=== PATIENT | male | born 1970 | race Caucasian/White ===

== ENCOUNTER 2019-10-11 19:41 | Emergency (ER) | payer MEDICARE, MEDICAID ==
[2019-10-11 19:51] VITALS: BP 160/100
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
== END 2019-10-11 20:10 | disposition home or self-care (01) ==
LOC: ED 19:41
DX: F22 Delusional disorders (principal); H92.01 Otalgia, right ear; Z53.20 Procedure and treatment not carried out because of patient's decision for unspecified reasons
CPT/HCPCS: 80053; 80307; 80320; 80329; 83690; 84443; 85025; 99283; 99284

== ENCOUNTER 2019-11-18 23:06 | Outpatient (CLI) | payer MEDICARE, MEDICAID | END 2019-11-18 23:59 | disposition critical access hospital (66) | LOC: EMS 23:06 | PROVIDERS: ATTEND Surgery | DX: H92.01 Otalgia, right ear (principal); R41.82 Altered mental status, unspecified | CPT/HCPCS: A0425; A0429 ==

== ENCOUNTER 2019-11-18 23:22 | Emergency (ER) | payer MEDICARE, MEDICAID ==
--- NOTE | 2019-11-18 23:34 | ED Physician Documentation ---
PD HPI HEENT - Stated complaint Stated Complaint: MHE - Chief complaint Chief Complaint: Heent - History obtained from History obtained from: Patient, EMS - History of Present Illness Timing - onset: How many minutes ago (45) Timing - details: Abrupt onset Pain level now: 8 Location: Right ear Improves: Nothing Worsens: Other (no exacerbating factors) Associated symptoms: No: Fever Recently seen: Emergency Dept (T+R last month for similar c/o) - Additional information Additional information: BIBA. Patient called 911 c/o right ear pain and bleeding. He says there is some sort of electronic device that was placed there by someone and that this device is controlled through radiation and "EMF". Patient says this has been a recurring problem for many months. Review of Systems Ears: reports: Ear pain, Foreign body (patient insists there is some sort of implanted device, but in the context of his HPI, this is certainly a delusion). denies: Loss of hearing, Drainage/discharge, Tinnitus/ringing PD PAST MEDICAL HISTORY - Past Medical History Cardiovascular: Hypertension - Past Surgical History Past Surgical History: Yes General: Appendectomy - Present Medications Home Medications: Ambulatory Orders Medication Instructions Recorded Confirmed amLODIPine [Norvasc] 5 mg PO DAILY 11/18/19 11/18/19 - Allergies Allergies/Adverse Reactions: Allergies Allergy/AdvReac Type Severity Reaction Status Date / Time amoxicillin Allergy Anaphylaxis Verified 10/11/19 19:44 - Social History Does the pt smoke?: Yes Smoking Status: Current every day smoker Does the pt drink ETOH?: No Does the pt have substance abuse?: No - Immunizations Immunizations are current?: Yes - POLST Patient has POLST: No PD ED PE NORMAL - Vitals Vital signs reviewed: Yes - General General: Alert and oriented X 3, No acute distress, Well developed/nourished - HEENT HEENT: Atraumatic PD ED PE EXPANDED - HEENT HEENT: Other (left ear exam is normal. right TM has trace peripheral hyperemia. There is trace, dried blood in external auditory canal without swelling, discharge) Results - Vitals Vitals: Vital Signs - 24 hr 11/18/19 11/18/19 23:27 23:38 Temperature 37.0 C Heart Rate 93 84 Respiratory 17 Rate Blood Pressure 180/117 H 155/106 H O2 Saturation 98 Oxygen O2 Source Room air PD MEDICAL DECISION MAKING - ED course Complexity details: reviewed old records, considered differential, d/w patient ED course: patient is calm and cooperative, conversant and polite but clearly having delusions; he is certain that someone has placed an electronic device in his right ear and that this person drives around with other devices that control the implanted device, using radiation beams and EMF impulses. Patient is reassured that his right ear exam is unremarkable except for trace amount of blood in external auditory canal (it is likely that patient caused this in trying to get at whatever FB he perceives is there). I asked him to consider the possibility that there is no such device and that he is having a delusion. He politely rejected this idea, says he has been told this "many times". He does not want to stay in ED for further testing and says he will follow up with his PMD (although he says he will do so to ask if they can "hire an civil rights investigator to look into this"). I asked that he also consider that prescription medication might help with his thoughts of an implanted device in his ear. He did not take his amlodipine today, which is likely contributing to his elevated BP in ED. Given dose of amlodipine prior to d/c. He says he has this medication at home and will resume taking it as prescribed. Patient exhibits delusion as described above, but there is no information available to me at this time to suggest he is an imminent danger to himself or others nor that he is gravely disabled and thus he is discharged as he requests. Departure - Departure Disposition: 01 Home, Self Care Clinical Impression: Delusions Acute ear pain Qualifiers: Laterality: right Qualified Code(s): H92.01 - Otalgia, right ear Condition: Good Instructions: ED Hypertension Conf Out Of Control, ED Symptoms No Dx Discharge Date/Time: 11/18/19 23:49
[2019-11-18] MEDS ORDERED: amLODIPine 5 MG TABLET PO STA (23:37)
[2019-11-18 23:39] VITALS: BP 155/106
== END 2019-11-18 23:49 | disposition home or self-care (01) ==
LOC: EDUNIT# → ED 23:22
DX: F22 Delusional disorders (principal); H92.01 Otalgia, right ear; I10 Essential (primary) hypertension; F17.200 Nicotine dependence, unspecified, uncomplicated
CPT/HCPCS: 99283; A9270

== ENCOUNTER 2021-02-05 14:00 | Outpatient (CLI) | payer MEDICARE, MEDICAID | END 2021-02-05 14:01 | disposition critical access hospital (66) | LOC: EMS 14:00 | DX: R51.9 Headache, unspecified (principal) | CPT/HCPCS: A0425; A0429 ==

== ENCOUNTER 2021-02-05 14:22 | Emergency (ER) | payer MEDICARE, MEDICAID ==
[2021-02-05] MEDS ORDERED: SUMAtriptan 6 MG/0.5 ML VIAL SUBQ STA (14:33)
--- NOTE | 2021-02-05 14:50 | ED Physician Documentation ---
History of Present Illness - Stated complaint Stated Complaint: HEADACHE - Chief complaint Chief Complaint: MHE - History obtained from History obtained from: Patient, EMS - History of Present Illness Pain level max: 8 Pain level now: 8 - Additonal information Additional information: Patient is a 50-year-old male brought in by EMS for a headache for the past 8 hours. He states that his gradually worsened during that time but also states that it was sudden onset. Nothing makes it better or worse. Did not take anything for the pain prior to arrival. Denies any trauma. Review of Systems Constitutional: denies: Fever, Chills Respiratory: denies: Cough GI: denies: Nausea, Vomiting, Diarrhea Skin: denies: Rash Musculoskeletal: denies: Neck pain, Back pain PD PAST MEDICAL HISTORY - Past Medical History Cardiovascular: Hypertension - Past Surgical History Past Surgical History: Yes General: Appendectomy - Present Medications Home Medications: Ambulatory Orders Medication Instructions Recorded Confirmed amLODIPine [Norvasc] 5 mg PO DAILY 11/18/19 02/05/21 - Allergies Allergies/Adverse Reactions: Allergies Allergy/AdvReac Type Severity Reaction Status Date / Time amoxicillin Allergy Anaphylaxis Verified 02/05/21 14:34 - Social History Does the pt smoke?: Yes Smoking Status: Current every day smoker Does the pt drink ETOH?: No Does the pt have substance abuse?: No - Immunizations Immunizations are current?: Yes - POLST Patient has POLST: No PD ED PE NORMAL - Vitals Vital signs reviewed: Yes - General General: Alert and oriented X 3, No acute distress - HEENT HEENT: Atraumatic, PERRL, Ears normal, Moist mucous membranes - Neck Neck: Supple, no meningeal sign - Cardiac Cardiac: RRR, Strong equal pulses - Respiratory Respiratory: No respiratory distress, Clear bilaterally - Abdomen Abdomen: Soft, Non tender, Non distended - Derm Derm: Warm and dry, No rash - Extremities Extremities: No edema - Neuro Neuro: Alert and oriented X 3, manager credit risk 2-12 intact, No motor deficit, No sensory deficit, Normal speech Eye Opening: Spontaneous Motor: Obeys Commands Verbal: Oriented GCS Score: 15 - Psych Psych: Normal mood, Normal affect Results - Vitals Vitals: Oxygen O2 Source Room air - Rads (name of study) head Ct Radiology: Final report received, EMP read contemporaneously, See rad report (no acute abnormality) PD MEDICAL DECISION MAKING - ED course Complexity details: considered differential, d/w patient ED course: Patient with a migraine headache today. Resolved with Imitrex. The headache was rapid onset so head CT was performed, this does not show any acute abnormalities. Patient does not want a lumbar puncture. Headache has resolved and feels well and like to go home. Patient counseled regarding signs and symptoms for which I believe and urgent re-evaluation would be necessary. Patient with good understanding of and agreement to plan and is comfortable going home at this time This document was made in part using voice recognition software. While efforts are made to proofread this document, sound alike and grammatical errors may occur. Departure - Departure Disposition: Home, Self Care Clinical Impression: Headache Qualifiers: Headache type: unspecified Headache chronicity pattern: acute headache Intractability: not intractable Qualified Code(s): R51.9 - Headache, unspecified Condition: Good Instructions: ED Cephalgia Unspecified Follow-Up: Gerry Patricia MD [Primary Care Provider] - Within 1 week Comments: Please follow-up with your doctor as needed for further care. Your head CT does not show any acute abnormalities today. Return if you worsen. Discharge Date/Time: 02/05/21 15:40
--- NOTE | 2021-02-05 15:05 | CT Report ---
PROCEDURE: HEAD WO INDICATIONS: headache TECHNIQUE: Noncontrast 4.5 mm thick angled axial sections acquired from the foramen magnum to the vertex. For r adiation dose reduction, the following was used: automated exposure control, adjustment of mA and/or kV according to patient size. COMPARISON: None. FINDINGS: Image quality: Excellent. CSF spaces: Basal cisterns are patent. No extra-axial fluid collections. Ventricles are normal in size and shape. Brain: No midline shift. No intracranial masses or hemorrhage. Terrazas-white matter interface is norm al. Skull and face: Calvarium and visualized facial bones are intact, without suspicious lesions. Sinuses: Minimal mucosal thickening in the left maxillary sinus. Visualized sinuses and mastoids are lysed clear. IMPRESSION: No acute intracranial abnormality. Reviewed by: Lauro Coles MD on 02/05/2021 3:04 PM PDT Approved by: Lauro Coles MD on 02/05/2021 3:04 PM PDT Station ID: [id number]
[2021-02-05 15:40] VITALS: BP 177/108
== END 2021-02-05 15:40 | disposition home or self-care (01) ==
LOC: EDUNIT# → ED 14:22
DX: R51.9 Headache, unspecified (principal); I10 Essential (primary) hypertension; F17.200 Nicotine dependence, unspecified, uncomplicated
CPT/HCPCS: 96372; 99284

== ENCOUNTER 2021-03-29 14:50 | Outpatient (CLI) | payer MEDICARE, MEDICAID ==
[2021-03-29 14:58] LABS: BASOPHILS # (AUTO) 0.1 10^3/uL (0.0-0.1); BASOPHILS % (AUTO) 0.8 %; EOSINOPHILS # (AUTO) 0.1 10^3/uL (0.0-0.7); EOSINOPHILS % (AUTO) 1.5 %; HCT - HEMATOCRIT 43.8 % (42.0-52.0); HGB - HEMOGLOBIN 14.5 g/dL (14.0-18.0); LYMPHOCYTES # (AUTO) 1.2 10^3/uL (1.5-3.5); LYMPHOCYTES % (AUTO) 17.3 %; MEAN CORPUSCULAR HEMOGLOBIN 29.5 pg (27.0-31.0); MEAN CORPUSCULAR HGB CONC 33.1 g/dL (32.0-36.0); MEAN PLATELET VOLUME 8.1 fL (7.4-11.4); MONOCYTES # (AUTO) 0.5 10^3/uL (0.0-1.0); MONOCYTES % (AUTO) 6.3 %; NEUTROPHILS # (AUTO) 5.2 10^3/uL (1.5-6.6); NEUTROPHILS % (AUTO) 73.7 %; PLT - PLATELET COUNT 334 10^3/uL (130-450); RED BLOOD COUNT 4.92 10^6/uL (4.70-6.10); WHITE BLOOD COUNT 7.1 x10^3/uL (4.8-10.8)
[2021-03-29 15:16] LABS: ALBUMIN 4.1 g/dL (3.2-5.5); ALBUMIN/GLOBULIN RATIO 1.6 (1.0-2.2); BILIRUBIN,TOTAL 0.9 mg/dL (0.2-1.0); CREATININE 1.1 mg/dL (0.6-1.2); POTASSIUM 3.7 mmol/L (3.5-5.0); TOTAL PROTEIN 6.7 g/dL (6.7-8.2)
== END 2021-03-29 14:51 | disposition home or self-care (01) ==
LOC: LAB.R 14:50
PROVIDERS: ATTEND Registered Nurse
DX: R79.89 Other specified abnormal findings of blood chemistry (principal); R94.6 Abnormal results of thyroid function studies
CPT/HCPCS: 80053; 84443; 84484; 85025

== ENCOUNTER 2021-04-20 14:34 | Outpatient (CLI) | payer OTHER ==
[2021-04-21 11:32] LABS: HEPATITIS B SURFACE AB QN IMM <5 mIU/mL (> OR = 10); HEPATITIS C ANTIBODY NON-REACTIVE (NON-REACTIVE)
[2021-04-21 15:32] LABS: HIV AG/AB 4TH GEN NON-REACTIVE (NON-REACTIVE)
== END 2021-04-20 14:35 | disposition home or self-care (01) ==
LOC: LAB.R 14:34
PROVIDERS: ATTEND Registered Nurse
DX: Z77.21 Contact with and (suspected) exposure to potentially hazardous body fluids (principal)
CPT/HCPCS: 86317; 86803; 87389

== ENCOUNTER 2021-06-08 11:52 | Outpatient (CLI) | payer MEDICARE, MEDICAID | END 2021-06-08 11:53 | disposition left against medical advice (07) | LOC: EMS 11:52 | DX: R51.9 Headache, unspecified (principal) ==

== ENCOUNTER 2023-12-10 10:13 | Outpatient (CLI) | payer OTHER ==
[2023-12-10 10:22] LABS: BASOPHILS # (AUTO) 0.1 10^3/uL (0.0-0.1); EOSINOPHILS # (AUTO) 0.2 10^3/uL (0.0-0.7); EOSINOPHILS % (AUTO) 4.5 %; HGB - HEMOGLOBIN 13.4 g/dL (14.0-18.0); LYMPHOCYTES # (AUTO) 1.6 10^3/uL (1.5-3.5); LYMPHOCYTES % (AUTO) 30.6 %; MEAN CORPUSCULAR HEMOGLOBIN 29.1 pg (27.0-31.0); MEAN CORPUSCULAR HGB CONC 34.4 g/dL (32.0-36.0); MEAN CORPUSCULAR VOLUME 84.8 fL (80.0-94.0); MEAN PLATELET VOLUME 8.3 fL (7.4-11.4); MONOCYTES # (AUTO) 0.4 10^3/uL (0.0-1.0); MONOCYTES % (AUTO) 7.8 %; NEUTROPHILS # (AUTO) 2.9 10^3/uL (1.5-6.6); NEUTROPHILS % (AUTO) 55.9 %; PLT - PLATELET COUNT 317 10^3/uL (130-450); RED CELL DISTRIBUTION WIDTH 13.2 % (12.0-15.0); WHITE BLOOD COUNT 5.2 x10^3/uL (4.8-10.8)
[2023-12-10 10:30] LABS: ESTIMATED AVERAGE GLUCOSE 88 mg/dL (70-100); HEMOGLOBIN A1c% 4.7 % (4.27-6.07)
[2023-12-10 10:44] LABS: ALBUMIN 4.1 g/dL (3.2-5.5); ALBUMIN/GLOBULIN RATIO 1.5 (1.0-2.2); BILIRUBIN,TOTAL 0.6 mg/dL (0.2-1.0); CALCIUM 9.4 mg/dL (8.5-10.3); POTASSIUM 3.6 mmol/L (3.5-4.5); TOTAL PROTEIN 6.8 g/dL (6.4-8.9)
[2023-12-10 11:03] LABS: THYROID STIMULATING HORMONE 2.1 uIU/mL (0.34-5.60)
[2023-12-10 11:09] LABS: PROLACTIN 89.29 ng/mL
== END 2023-12-10 10:14 | disposition home or self-care (01) ==
LOC: LAB.R 10:13
PROVIDERS: ATTEND Registered Nurse
DX: I16.0 Hypertensive urgency (principal); R94.6 Abnormal results of thyroid function studies; R74.8 Abnormal levels of other serum enzymes; Z13.29 Encounter for screening for other suspected endocrine disorder; Z13.228 Encounter for screening for other metabolic disorders; Z13.1 Encounter for screening for diabetes mellitus; R68.89 Other general symptoms and signs
CPT/HCPCS: 80053; 82550; 83036; 83880; 84146; 84443; 85025

== ENCOUNTER 2023-12-10 11:42 | Emergency (ER) | payer OTHER ==
[2023-12-10 12:30] LABS: BASOPHILS # (AUTO) 0.1 10^3/uL (0.0-0.1); BASOPHILS % (AUTO) 1.1 %; EOSINOPHILS # (AUTO) 0.2 10^3/uL (0.0-0.7); EOSINOPHILS % (AUTO) 4.3 %; HCT - HEMATOCRIT 39.4 % (42.0-52.0); HGB - HEMOGLOBIN 13.9 g/dL (14.0-18.0); LYMPHOCYTES # (AUTO) 1.8 10^3/uL (1.5-3.5); LYMPHOCYTES % (AUTO) 33.1 %; MEAN CORPUSCULAR HGB CONC 35.3 g/dL (32.0-36.0); MEAN CORPUSCULAR VOLUME 84.9 fL (80.0-94.0); MEAN PLATELET VOLUME 8.3 fL (7.4-11.4); MONOCYTES # (AUTO) 0.4 10^3/uL (0.0-1.0); MONOCYTES % (AUTO) 7.2 %; NEUTROPHILS # (AUTO) 2.9 10^3/uL (1.5-6.6); NEUTROPHILS % (AUTO) 54.1 %; PLT - PLATELET COUNT 310 10^3/uL (130-450); RED BLOOD COUNT 4.64 10^6/uL (4.70-6.10); RED CELL DISTRIBUTION WIDTH 13.2 % (12.0-15.0); WHITE BLOOD COUNT 5.4 x10^3/uL (4.8-10.8)
--- NOTE | 2023-12-10 12:32 | XRAY Report ---
PROCEDURE: Chest 1V INDICATIONS: Chest pain TECHNIQUE: One view of the chest was acquired. COMPARISON: None. FINDINGS: Surgical changes and devices: None. Lungs and pleura: No pleural effusions or pneumothorax. Lungs are clear. Peribronchial cuffing. Mediastinum: Mediastinal contours appear normal. Heart size is normal. Bones and chest wall: No suspicious bony lesions. Overlying soft tissues appear unremarkable. IMPRESSION: Peribronchial cuffing, suggestive of infectious or inflammatory bronchitis. Reviewed by: Martínez Brooks MD on 12/10/2023 12:31 PM PDT Approved by: Martínez Brooks MD on 12/10/2023 12:31 PM PDT Station ID: [id number]
[2023-12-10 13:00] LABS: TROPONIN I HIGH SENSITIVITY 5.3 ng/L (2.3-19.7)
--- NOTE | 2023-12-10 13:02 | ED Physician Documentation ---
History of Present Illness - Stated complaint Stated Complaint: CP - Chief complaint Chief Complaint: Cardiac - History obtained from History obtained from: Patient - Additonal information Additional information: The patient is brought to the emergency department from the group home for chief complaint of bodyaches for the last approximately 6 months and elevated blood pressure. The patient states that he believes the whole body aches began when he was admitted over at [facility] and spent most of his time in bed. He states that he feels a bit better when he is able to get more activity, though he is currently incarcerated and does not get to move around a whole lot. However, he states that he has more opportunity for physical activity than he did when he was at [facility]. The patient believes he has been having a higher than normal blood pressure for at least the last few months though he is not entirely sure. He was diagnosed with hypertension about 5 years ago and has been on lisinopril and hydrochlorothiazide. He states that he is not aware of any dose changes in recent months. He denies any chest pain that seems worse than the body aches he is already having. No shortness of breath. No strokelike symptoms. No throbbing or headache. The medical physics teacher from the group home has reported to me that the patient's blood pressure was 180/120 in their clinic this morning and she was concerned because he had "chest pain and bilateral shoulder pain". When asked about this, the patient states that he did not have any shoulder pain that seemed to standout. The patient denies any other complaints at this time. No injuries. PD PAST MEDICAL HISTORY - Past Medical History Past Medical History: Yes Cardiovascular: Hypertension Respiratory: None Neuro: None Endocrine/Autoimmune: None GI: None : None HEENT: Chronic vision loss Psych: Bipolar disorder, Schizophrenia Musculoskeletal: None Derm: None - Past Surgical History Past Surgical History: Yes General: Appendectomy - Present Medications Home Medications: Ambulatory Orders Medication Instructions Recorded Confirmed Cholecalciferol (Vitamin D3) 50 mcg PO DAILY 12/10/23 12/10/23 [Vitamin D3] Lisinopril [Zestril] 20 mg PO HS 12/10/23 12/10/23 Trazodone HCl 100 mg PO HS 12/10/23 12/10/23 hydrOXYzine pamoate [Hydroxyzine 50 mg PO TID PRN 12/10/23 12/10/23 Pamoate] hydroCHLOROthiazide [Hydrodiuril] 12.5 mg PO DAILY 12/10/23 12/10/23 risperiDONE [Risperdal] 2 mg PO DAILY 12/10/23 12/10/23 risperiDONE [Risperdal] 3 mg PO HS 12/10/23 12/10/23 - Allergies Allergies/Adverse Reactions: Allergies Allergy/AdvReac Type Severity Reaction Status Date / Time amoxicillin Allergy Anaphylaxis Verified 12/10/23 11:56 - Social History Does the pt smoke?: Yes Smoking Status: Current every day smoker Does the pt drink ETOH?: No Does the pt have substance abuse?: No - Immunizations Immunizations are current?: Yes - POLST Patient has POLST: No PD ED PE NORMAL - Vitals Vital signs reviewed: Yes - General General: No acute distress, Well developed/nourished, Other (Alert and grossly oriented.) - HEENT HEENT: Atraumatic, EOMI, Moist mucous membranes - Neck Neck: Supple, no meningeal sign - Cardiac Cardiac: RRR, No murmur, Strong equal pulses - Respiratory Respiratory: No respiratory distress, Clear bilaterally - Abdomen Abdomen: Soft, Non tender, Non distended - Derm Derm: Normal color, Warm and dry, No rash - Extremities Extremities: No deformity, No edema, No calf tenderness / cord - Neuro Neuro: Other (Grossly intact.) - Psych Psych: Normal mood, Normal affect Results - Vitals Vitals: Vital Signs - 24 hr 12/10/23 12/10/23 12/10/23 11:56 12:20 14:00 Temperature 36.3 C L Heart Rate 72 76 73 Respiratory 18 14 15 Rate Blood Pressure 159/118 H 179/125 H 169/122 H O2 Saturation 98 99 97 12/10/23 14:54 Temperature 36.6 C Heart Rate 74 Respiratory 15 Rate Blood Pressure 156/130 H O2 Saturation 98 Oxygen O2 Source Room air - Labs Labs: Laboratory Tests 12/10/23 12/10/23 12:17 12:17 WBC 5.4 RBC 4.64 L Hgb 13.9 L Hct 39.4 L MCV 84.9 MCH 30.0 MCHC 35.3 RDW 13.2 Plt Count 310 MPV 8.3 Neut # (Auto) 2.9 Lymph # (Auto) 1.8 Eddy # (Auto) 0.4 Eos # (Auto) 0.2 Baso # (Auto) 0.1 Absolute Nucleated RBC 0.00 Nucleated RBC % 0.0 Sodium 138 Potassium 3.8 Chloride 104 Carbon Dioxide 28 Anion Gap 6.0 BUN 17 Creatinine 1.0 Estimated GFR (MDRD) 78 L Glucose 94 Calcium 9.5 Total Bilirubin 0.5 AST 12 ALT 9 L Alkaline Phosphatase 49 Troponin I High Sens 5.3 Total Protein 6.9 Albumin 4.2 Globulin 2.7 Albumin/Globulin Ratio 1.6 Lipase 20 PD Medical Decision Making - ED course Complexity details: reviewed old records, reviewed results, re-evaluated patient, considered differential, d/w patient ED course: The patient reported whole body pain that had been going on for quite some time and did not have any acute complaints. His blood pressure did seem to have been running quite high and the medical staff at the group home did express that they had planned to double his lisinopril from 10 mg to 20 mg once a day. Patient is also on hydrochlorothiazide 12.5 mg daily and I have discussed with them that it would be good to double this dose and have the patient take it twice a day. Blood had already been drawn through the group home and overall looked good. Troponin was added here in the ED and EKG was performed. EKG was unremarkable and troponin was negative. We have discussed the need for close follow-up and the usual indications for return. Departure - Departure Disposition: 01 Home, Self Care Clinical Impression: Body aches Hypertension Qualifiers: Hypertension type: unspecified Qualified Code(s): I10 - Essential (primary) hypertension Condition: Stable Instructions: Hypertension Dc, ED Muscle Aching Comments: The laboratory studies overall look good. There is no evidence of heart attack or any other emergent condition. The aching you have been experiencing has been going on for quite a few months and involves her whole body. If physical activity is helpful for this, then please try to engage in as much activity as you are reasonably able to do, given your situation and incarceration. As far as your blood pressure, it is high and you do need better control as an outpatient. It sounds like the medical staff at the group home plans to double your lisinopril to 20 mg. We should also have you planned to double your hydrochlorothiazide to 25 mg per dose instead of 12.5 mg. You should be taking this twice a day. You will need to have your blood pressures checked on a daily basis to see how you are responding to these changes in your medication. If you continue to have high blood pressure, you will need further adjustments to your regimen. Forms: PCP List Discharge Date/Time: 12/10/23 15:09
[2023-12-10 13:05] LABS: ALBUMIN 4.2 g/dL (3.2-5.5); ALBUMIN/GLOBULIN RATIO 1.6 (1.0-2.2); BILIRUBIN,TOTAL 0.5 mg/dL (0.2-1.0); CALCIUM 9.5 mg/dL (8.5-10.3); POTASSIUM 3.8 mmol/L (3.5-4.5); TOTAL PROTEIN 6.9 g/dL (6.4-8.9)
[2023-12-10 14:58] VITALS: BP 156/130; O2SAT 98
== END 2023-12-10 15:09 | disposition home or self-care (01) ==
LOC: ED 11:42
DX: R52 Pain, unspecified (principal); I10 Essential (primary) hypertension; F17.200 Nicotine dependence, unspecified, uncomplicated
CPT/HCPCS: 36415; 80053; 83690; 84484; 85025; 93005; 99283; 99284